=== PATIENT | female | born 1995 | race African-American/Black ===

== ENCOUNTER 2017-03-05 20:47 | Emergency (ER) | payer MEDICAID, OTHER ==
[~2017-03-05] VITALS: Ht 162.6 cm; Wt 54.5 kg
[2017-03-05 20:51] VITALS: Ht 162.6 cm; Wt 54.5 kg
[2017-03-05] MEDS ORDERED: morphine 4 MG/ML VIAL IV STA (22:00)
[2017-03-05] MEDS ORDERED: SOD CHLORIDE 0.9% 1,000 ML IV STA (22:00)
[2017-03-05] MEDS ORDERED: ONDANSETRON 4 MG INJ IV STA (22:00)
--- NOTE | 2017-03-05 22:13 | ERD ---
ER Documentation Chief Complaint Chief Complaint abd pain w/ N/V x 2 days HPI 22-year-old female presents to emergency department for complaints of left lower quadrant abdominal pain that started 2 days ago. Patient describes the pain as sharp pain, 8/10 scale, accompanied with vomiting. Patient does not have any blood in vomit. Patient does not have any blood in stool or black stool. Patient does not have any diarrhea or constipation. Patient had vaginal bleeding episode yesterday, also had hematuria yesterday. Patient describes the left lower quadrant pain as sharp pain, and also radiates to the left back. ROS All systems reviewed and are negative except as per history of present illness. Medications Home Meds Active Scripts Ondansetron (Ondansetron Odt) 4 Mg Tab.rapdis, 4 MG PO Q6H Y for NAUSEA AND/OR VOMITING, #20 TAB Prov:RAJI CHAVIS NP 03/06/17 Hydrocodone/Acetaminophen (Ladd 5-325 Tablet) 1 Each Tablet, 1 TAB PO Q6H Y for SEVERE PAIN LEVEL 7-10, #20 TAB Prov:RAJI CHAVIS NP 03/06/17 Phenazopyridine Hcl* (Pyridium*) 200 Mg Tab, 200 MG PO TID Y for URINARY PAIN, # 6 TAB Prov:RAJI CHAVIS NP 03/06/17 Ibuprofen* (Motrin*) 600 Mg Tab, 600 MG PO Q6H Y for PAIN AND OR ELEVATED TEMP, #30 TAB Prov:RAJI CHAVIS NP 03/06/17 Reported Medications [none] Unknown Strength No Conflict Check 03/05/17 Allergies Allergies: Coded Allergies: No Known Allergy (Unverified , 03/05/17) PMhx/Soc Medical and Surgical Hx: pt denies Medical Hx, pt denies Surgical Hx History of Surgery: No Anesthesia Reaction: No Hx Neurological Disorder: No Hx Respiratory Disorders: No Hx Cardiac Disorders: No Hx Psychiatric Problems: No Hx Miscellaneous Medical Probl: No Hx Alcohol Use: No Hx Substance Use: No Hx Tobacco Use: No Smoking Status: Never smoker FmHx Family History: No coronary disease, No diabetes, No other Physical Exam Vitals Vital Signs Date Time Temp Pulse Resp B/P Pulse Ox O2 Delivery O2 Flow Rate FiO2 03/05/17 20:51 98.6 102 20 140/82 100 Physical Exam GENERAL: The patient is well developed and appropriate for usual state of health, in no apparent distress. CHEST: Clear to auscultation bilaterally. There are no rales, wheezes or rhonchi. HEART: Regular rate and rhythm. No murmurs, clicks, rubs or gallops. No S3 or S4. ABDOMEN: Soft, nontender and nondistended. Good bowel sounds. No rebound or guarding. No gross peritonitis. No gross organomegaly or masses. No Childs sign or McBurney point tenderness. BACK: No midline or flank tenderness. EXTREMITIES: Equal pulses bilaterally. There is no peripheral clubbing, cyanosis or edema. No focal swelling or erythema. Full range of motion. Grossly neurovascularly intact. NEURO: Alert and oriented. Cranial nerves 2-12 intact. Motor strength in all 4 extremities with 5/5 strength. Sensation grossly intact. Normal speech and gait. SKIN: There is no apparent rash or petechia. The skin is warm and dry. HEMATOLOGIC AND LYMPHATIC: There is no evidence of excessive bruising or lymphedema. No gross cervical, axillary, or inguinal lymphadenopathy. Result Diagram: 03/05/17224503/05/172245 Results 24 hrs Laboratory Tests Test 03/05/17 22:46 03/05/17 22:52 White Blood Count 5.410^3/ul Red Blood Count 4.8210^6/ul Hemoglobin 14.5g/dl Hematocrit 43.7% Mean Corpuscular Volume 90.7fl Mean Corpuscular Hemoglobin 30.1pg Mean Corpuscular Hemoglobin Concent 33.2g/dl Red Cell Distribution Width 11.5% Platelet Count 38062^3/UL Mean Platelet Volume 9.3fl Neutrophils % 56.0% Lymphocytes % 29.7% Monocytes % 12.4% Eosinophils % 1.3% Basophils % 0.6% Nucleated Red Blood Cells % 0.0/100WBC Neutrophils # 3.010^3/ul Lymphocytes # 1.610^3/ul Monocytes # 0.710^3/ul Eosinophils # 0.110^3/ul Basophils # 0.010^3/ul Nucleated Red Blood Cells # 0.010^3/ul Sodium Level 140mmol/L Potassium Level 3.9mmol/L Chloride Level 100mmol/L Carbon Dioxide Level 27mmol/L Anion Gap 17 Blood Urea Nitrogen 15mg/dl Creatinine 0.99mg/dl Glucose Level 95mg/dl Calcium Level 10.1mg/dl Total Bilirubin 0.6mg/dl Direct Bilirubin 0.00mg/dl Indirect Bilirubin 0.6mg/dl Aspartate Amino Transf (AST/SGOT) 28IU/L Alanine Aminotransferase (ALT/SGPT) 26IU/L Alkaline Phosphatase 69IU/L Total Protein 9.4g/dl Albumin 4.6g/dl Globulin 4.80g/dl Albumin/Globulin Ratio 0.95 Lipase 50U/L Beta HCG, Quantitative < 2.4mIU/ml Urine Color YELLOW Urine Clarity CLEAR Urine pH 5.0 Urine Specific Whiting 1.043 Urine Ketones 2+mg/dL Urine Nitrite NEGATIVEmg/dL Urine Bilirubin 1+mg/dL Urine Urobilinogen 2+mg/dL Urine Leukocyte Esterase NEGATIVELeu/ul Urine Microscopic RBC 13/HPF Urine Microscopic WBC 2/HPF Urine Squamous Epithelial Cells FEW/HPF Urine Mucus MANY/HPF Urine Hemoglobin NEGATIVEmg/dL Urine Glucose NEGATIVEmg/dL Urine Total Protein 2+mg/dl Current Medications Medications (Trade) Dose Ordered Sig/Adali Route PRN Reason Start Time Stop Time Status Last Admin Dose Admin Sodium Chloride (NS) 1,000 ml @ 1,000 mls/hr Q1H STAT IV 03/05/17 22:00 03/05/17 22:59 DC 03/05/17 22:50 Morphine Sulfate (morphine) 4 mg ONCE STAT IV 03/05/17 22:00 03/05/17 22:01 DC 03/05/17 22:51 Ondansetron HCl (Zofran Inj) 4 mg ONCE STAT IV 03/05/17 22:00 03/05/17 22:02 VA 03/05/17 22:51 Metoclopramide HCl (Reglan) 10 mg ONCE ONCE IV 03/06/17 00:00 03/06/17 00:01 VA 03/05/17 23:52 Ketorolac Tromethamine (Toradol) 30 mg ONCE STAT IV 03/06/17 00:11 03/06/17 00:13 DC 03/06/17 00:18 Morphine Sulfate (morphine) 4 mg ONCE STAT IV 03/06/17 00:55 03/06/17 00:56 VA 03/06/17 01:26 Patient was given medication for pain here in emergency department, after treatment, patient verbalized feeling much better. Patient's pain is improved. Patient was given Zofran here in the emergency department. After treatment, patient was able to tolerate po fluids here in the emergency department without any vomiting. There is no signs and symptoms of dehydration. Normal saline IV bolus was given here in emergency department for rehydration, patient tolerated IV fluids. PROCEDURE: CT Abdomen and pelvis without contrast. CLINICAL INDICATION: Abdominal pain. TECHNIQUE: CT scan of the abdomen and pelvis was performed on a multi- detector high-resolution CT scanner. Contiguous axial images were obtained from the lung bases to the ischial tuberosities without intravenous contrast. Coronal and sagittal reformatted images were also obtained. Images were reviewed on the PACS workstation. DICOM images are available. One or more of the following dose reduction techniques were used: - Automated exposure control. - Adjustment of the mA and/or kV according to patient size. - Use of iterative reconstruction technique. Exam CTD/vol = 4.53 mGy. Total exam DLP = 237.35 mGy-cm. COMPARISON: None. FINDINGS: Evaluation of the lung bases demonstrates no pleural or parenchymal disease. Abdomen: The liver is normal in size. There is no focal mass or dilatation of the biliary tree. The gallbladder is not distended. The spleen, pancreas and bilateral adrenal glands are within normal limits. There is severe left-sided hydronephrosis with mild cortical thinning. The right kidney is normal in size with no contour deforming mass identified. There are punctate right renal calculi. There is no radiopaque ureteral calculus identified. There is no retroperitoneal adenopathy. The abdominal aorta is of normal caliber. There is no abnormal bowel wall thickening or distension. There is no bowel obstruction or free air. A normal appendix is partially visualized. There is no diverticulosis or diverticulitis. There is no ascites. Pelvis: The bladder is unremarkable. The uterus and adnexa are within normal limits. There is mild pelvic free fluid. There is no significant pelvic adenopathy. Evaluation of the osseous structures demonstrates no suspicious lytic or blastic lesion. IMPRESSION: Severe left-sided hydronephrosis likely secondary to ureteropelvic junction obstruction. Nonobstructing right renal calculi. Mild pelvic free fluid. .Rei Wakefield MD, MD Date Time Electronically viewed and signed by .Rei Wakefield MD, MD on 03/05/2017 23:50 .T/ CC: RAJI CHAVIS MANAGER LINE PROCEDURE: Pelvic ultrasound. CLINICAL INDICATION: Pelvic pain. TECHNIQUE: Multiple sonographic images of the pelvis were obtained utilizing a transabdominal and endovaginal technique. The images were reviewed on a PACS workstation. COMPARISON: None. FINDINGS: The uterus is visualized and measures 7.2 x 3.6 x 4.6 cm. No abnormal uterine mass is identified. The endometrial echo complex is homogeneous and measures 11.4 mm. There is mild free fluid within the cul-de-sac. The right ovary has a normal echotexture and measures 3.0 x 2.1 x 2.5 cm. The left ovary has a normal echotexture and measures 4.5 x 2.7 x 3.3 cm. There is normal flow to both ovaries. No adnexal masses are identified. IMPRESSION: Mild pelvic free fluid. Otherwise unremarkable pelvic ultrasound. .Rei Wakefield MD, MD Date Time Electronically viewed and signed by .Rei Wakefield MD, MD on 03/05/2017 22:58 .T/ CC: RAJI CHAVIS MANAGER LINE Procedures/[facility] Medical Decision Making: Symptoms was likely is consistent with renal colic, kidney function tests are normal at this time, most likely patient has passed the stone, as blood in the urine. I discussed this case with my attending physician, Dr. Velásquez, recommends outpatient follow-up with urology, to treat patient with pain medications. At this time, pain is controlled. There is low suspicion for abdominal emergencies at this time. Patients abdominal exam is normal at this time. Patients radiology exam does not show any abdominal emergencies at this time. There is low suspicion for appendicitis, cholecystitis , abdominal aortic aneurysms or peritonitis at this time. There is low suspicion for sepsis. Patient appears well and is hemodynamically stable. Disposition: Home. Condition: Stable Prescription Ladd, Zofran, ibuprofen, Pyridium Instructions: Patient is advised to take medications as prescribed. Patient is advised to rest, increase fluid intake and do brat diet for next 1-2 days and progress as tolerated. Patient is advised that if symptoms are worse, severe abdominal pain, uncontrolled vomiting, high fever, severe flank pain, worst signs and symptoms, to return to the emergency department immediately. Otherwise, patient can follow up with primary care doctor in 5-7 days. Disclaimer: Inadvertent spelling and grammatical errors are likely due to EHR/ dictation software use and do not reflect on the overall quality of patient care. Also, please note that the electronic time recorded on this note does not necessarily reflect the actual time of the patient encounter. Departure Diagnosis: Primary Impression: Renal colic on left side Condition: Stable Patient Instructions: Kidney Stone, Passed Additional Instructions: : Patient is advised to take medications as prescribed. Patient is advised to rest, increase fluid intake and do brat diet for next 1-2 days and progress as tolerated. Patient is advised that if symptoms are worse, severe abdominal pain , uncontrolled vomiting, high fever, severe flank pain, worst signs and symptoms , to return to the emergency department immediately. Otherwise, patient can follow up with primary care doctor in 5-7 days. RAJI CHAVIS NP Mar 05, 2017 22:13
--- NOTE | 2017-03-05 22:59 | RADRPT ---
PROCEDURE: Pelvic ultrasound. CLINICAL INDICATION: Pelvic pain. TECHNIQUE: Multiple sonographic images of the pelvis were obtained utilizing a transabdominal and endovaginal technique. The images were reviewed on a PACS workstation. COMPARISON: None. FINDINGS: The uterus is visualized and measures 7.2 x 3.6 x 4.6 cm. No abnormal uterine mass is identified. T he endometrial echo complex is homogeneous and measures 11.4 mm. There is mild free fluid within the cul-de-sac. The right ovary has a normal echotexture and measur es 3.0 x 2.1 x 2.5 cm. The left ovary has a normal echotexture and measures 4.5 x 2.7 x 3.3 cm. Th ere is normal flow to both ovaries. No adnexal masses are identified. IMPRESSION: Mild pelvic free fluid. Otherwise unremarkable pelvic ultrasound. .Rei Wakefield MD, MD Date Time Electronically viewed and signed by .Rei Wakefield MD, MD on 03/05/2017 22:58 .T/
[2017-03-05 23:14] LABS: BASOPHILS % 0.6 % (0.0-2.0); EOSINOPHILS # 0.1 10^3/ul (0.0-0.5); EOSINOPHILS % 1.3 % (0.0-7.0); HEMATOCRIT 43.7 % (37.0-47.0); HEMOGLOBIN 14.5 g/dl (12.0-16.0); LYMPHOCYTES # 1.6 10^3/ul (0.8-2.9); LYMPHOCYTES % 29.7 % (15.0-51.0); MEAN CORPUSCULAR HEMOGLOBIN 30.1 pg (29.0-33.0); MEAN CORPUSCULAR HGB CONC 33.2 g/dl (32.0-37.0); MEAN CORPUSCULAR VOLUME 90.7 fl (82.0-101.0); MEAN PLATELET VOLUME 9.3 fl (7.4-10.4); MONOCYTE # 0.7 10^3/ul (0.3-0.9); MONOCYTES % 12.4 % (0.0-11.0); PLATELET COUNT 311 10^3/UL (140-415); RED BLOOD COUNT 4.82 10^6/ul (4.20-5.40); RED CELL DISTRIBUTION WIDTH 11.5 % (11.5-14.5); WHITE BLOOD COUNT 5.4 10^3/ul (4.8-10.8)
[2017-03-05 23:22] LABS: ADD UMIC YES; UR ASCORBIC ACID 40 mg/dL (NEGATIVE); UR BILIRUBIN (Dip) 1+ mg/dL (NEGATIVE); UR BLOOD (Dip) NEGATIVE (NEGATIVE); UR CLARITY CLEAR (CLEAR); UR COLOR YELLOW (YELLOW); UR GLUCOSE (Dip) NEGATIVE (NEGATIVE); UR KETONES (Dip) 2+ mg/dL (NEGATIVE); UR LEUKOCYTE ESTERASE (Dip) NEGATIVE Leu/ul (NEGATIVE); UR MUCUS MANY /HPF (NONE SEEN); UR NITRITE (Dip) NEGATIVE (NEGATIVE); UR RBC 13 /HPF (0-5); UR SPECIFIC GRAVITY (Dip) 1.043 (1.003-1.030); UR SQUAMOUS EPITHELIAL CELL FEW /HPF (FEW); UR TOTAL PROTEIN (Dip) 2+ mg/dl (NEGATIVE); UR UROBILINOGEN (Dip) 2+ mg/dL (NEGATIVE)
[2017-03-05 23:24] LABS: ALBUMIN 4.6 g/dl (3.3-4.9); ALBUMIN/GLOBULIN RATIO 0.95; BILIRUBIN,INDIRECT 0.6 mg/dl (0-1.1); BILIRUBIN,TOTAL 0.6 mg/dl (0.2-1.3); CALCIUM 10.1 mg/dl (8.4-10.2); CREATININE 0.99 mg/dl (0.44-1.00); POTASSIUM 3.9 mmol/L (3.5-5.1); TOTAL PROTEIN 9.4 g/dl (6.1-8.1)
--- NOTE | 2017-03-05 23:51 | RADRPT ---
PROCEDURE: CT Abdomen and pelvis without contrast. CLINICAL INDICATION: Abdominal pain. TECHNIQUE: CT scan of the abdomen and pelvis was performed on a multi-detector high-resolution CT scanner. Contiguous axial images were obtained from the lung bases to the ischial tuberosities wit hout intravenous contrast. Coronal and sagittal reformatted images were also obtained. Images were reviewed on the PACS workstation. DICOM images are available. One or more of the following dose reduction techniques were used: - Automated exposure control. - Adjustment of the mA and/or kV according to patient size. - Use of iterative reconstruction technique. Exam CTD/vol = 4.53 mGy. Total exam DLP = 237.35 mGy-cm. COMPARISON: None. FINDINGS: Evaluation of the lung bases demonstrates no pleural or parenchymal disease. Abdomen: The liver is normal in size. There is no focal mass or dilatation of the biliary tree. T he gallbladder is not distended. The spleen, pancreas and bilateral adrenal glands are within william l limits. There is severe left-sided hydronephrosis with mild cortical thinning. The right kidney i s normal in size with no contour deforming mass identified. There are punctate right renal calculi. There is no radiopaque ureteral calculus identified. There is no retroperitoneal adenopathy. The abdominal aorta is of normal caliber. There is no abnormal bowel wall thickening or distension. There is no bowel obstruction or free air . A normal appendix is partially visualized. There is no diverticulosis or diverticulitis. There is no ascites. Pelvis: The bladder is unremarkable. The uterus and adnexa are within normal limits. There is mil d pelvic free fluid. There is no significant pelvic adenopathy. Evaluation of the osseous structures demonstrates no suspicious lytic or blastic lesion. IMPRESSION: Severe left-sided hydronephrosis likely secondary to ureteropelvic junction obstruction. Nonobstructing right renal calculi. Mild pelvic free fluid. .Rei Wakefield MD, MD Date Time Electronically viewed and signed by .Rei Wakefield MD, MD on 03/05/2017 23:50 .T/
[2017-03-06] MEDS ORDERED: METOCLOPRAMIDE 10 MG INJ IV ONE
[2017-03-06] MEDS ORDERED: KETOROLAC 30 MG INJ IV STA (00:11)
[2017-03-06] MEDS ORDERED: IBUP-1542 PO (00:23)
[2017-03-06] MEDS ORDERED: HYDR-906 PO (00:23)
[2017-03-06] MEDS ORDERED: ONDA4TAB14 PO (00:23)
[2017-03-06] MEDS ORDERED: PHEN-538 PO (00:23)
[2017-03-06] MEDS ORDERED: morphine 4 MG/ML VIAL IV STA (00:55)
[2017-03-07] MEDS ORDERED: POLY17PO6 PO (09:22)
[2017-03-07] MEDS ORDERED: DOCU-144 PO (09:22)
== END 2017-03-06 01:52 | disposition home or self-care (01) ==
LOC: FTE 20:47
DX: N23 Unspecified renal colic (principal); R11.10 Vomiting, unspecified
CPT/HCPCS: 36415; 74176; 76830; 76856; 80053; 81001; 83690; 84702; 85025; 96374; 96375; 96376; J1885; J2270; J2405; J2765; J7030; Z7502

== ENCOUNTER 2017-03-07 07:03 | Emergency (ER) | payer MEDICAID ==
[~2017-03-07] VITALS: Ht 157.5 cm; Wt 55.4 kg
[~2017-03-07 07:03] MED LIST: HYDR-906 PO; IBUP-1542 PO; ONDA4TAB14 PO; PHEN-538 PO
[2017-03-07 07:09] VITALS: Ht 157.5 cm; Wt 55.4 kg
[2017-03-07] MEDS ORDERED: ONDANSETRON 4 MG INJ IV STA (07:39)
[2017-03-07] MEDS ORDERED: SOD CHLORIDE 0.9% 1,000 ML IV STA (07:39)
[2017-03-07] MEDS ORDERED: KETOROLAC 30 MG INJ IV STA (07:39)
[2017-03-07] MEDS ORDERED: morphine 4 MG/ML VIAL IV STA (07:39)
[2017-03-07 08:12] LABS: BASOPHILS % 0.5 % (0.0-2.0); EOSINOPHILS # 0.1 10^3/ul (0.0-0.5); EOSINOPHILS % 1.9 % (0.0-7.0); HEMATOCRIT 37.3 % (37.0-47.0); HEMOGLOBIN 12.7 g/dl (12.0-16.0); LYMPHOCYTES # 1.3 10^3/ul (0.8-2.9); LYMPHOCYTES % 21.3 % (15.0-51.0); MEAN CORPUSCULAR HEMOGLOBIN 30.2 pg (29.0-33.0); MEAN CORPUSCULAR VOLUME 88.8 fl (82.0-101.0); MONOCYTE # 0.7 10^3/ul (0.3-0.9); MONOCYTES % 11.8 % (0.0-11.0); NEUTROPHIL # 3.8 10^3/ul (1.6-7.5); NEUTROPHILS % 64.3 % (39.0-77.0); PLATELET COUNT 258 10^3/UL (140-415); RED CELL DISTRIBUTION WIDTH 11.4 % (11.5-14.5); WHITE BLOOD COUNT 5.9 10^3/ul (4.8-10.8)
[2017-03-07 08:18] LABS: ADD UMIC YES; UR ASCORBIC ACID NEGATIVE (NEGATIVE); UR BILIRUBIN (Dip) NEGATIVE (NEGATIVE); UR BLOOD (Dip) 1+ mg/dL (NEGATIVE); UR CLARITY CLEAR (CLEAR); UR COLOR AMBER (YELLOW); UR GLUCOSE (Dip) NEGATIVE (NEGATIVE); UR KETONES (Dip) 1+ mg/dL (NEGATIVE); UR LEUKOCYTE ESTERASE (Dip) NEGATIVE Leu/ul (NEGATIVE); UR MUCUS FEW /HPF (NONE SEEN); UR NITRITE (Dip) POSITIVE (NEGATIVE); UR RBC 4 /HPF (0-5); UR SQUAMOUS EPITHELIAL CELL FEW /HPF (FEW); UR TOTAL PROTEIN (Dip) NEGATIVE (NEGATIVE); UR UROBILINOGEN (Dip) 2+ mg/dL (NEGATIVE)
[2017-03-07 08:35] LABS: ALBUMIN 4.3 g/dl (3.3-4.9); ALBUMIN/GLOBULIN RATIO 0.97; BILIRUBIN,INDIRECT 0.8 mg/dl (0-1.1); BILIRUBIN,TOTAL 0.8 mg/dl (0.2-1.3); CALCIUM 9.8 mg/dl (8.4-10.2); CREATININE 0.99 mg/dl (0.44-1.00); POTASSIUM 4.1 mmol/L (3.5-5.1); TOTAL PROTEIN 8.7 g/dl (6.1-8.1)
--- NOTE | 2017-03-07 08:37 | RADRPT ---
PROCEDURE: CT Abdomen and Pelvis without contrast. CLINICAL INDICATION: Left-sided pain. TECHNIQUE: CT scan of the abdomen and pelvis without contrast was performed on a multidetector hig h-resolution CT scanner. The patient was scanned without intravenous contrast. Coronal and sagittal reformatted images were obtained from the axial source images. Images were reviewed on a high-resol [employer] PACS workstation. The total exam CTDI equals 4.85 mGy and the total exam DLP equals 267.27 mGy -cm. One or the following dose reduction techniques were used: -Automated exposure control. -Adjustment of the mA and/or KV according to patient's size. -Use of iterative reconstruction technique. DICOM images are available. COMPARISON: CT abdomen pelvis 03/05/2017. FINDINGS: Note: Overall sensitivity of the study is lower by the fact that oral and intravenous contrast was not utilized. Lower thorax: Unremarkable. GI:. Unremarkable. Liver: Unremarkable. Gallbladder: Unremarkable. Pancreas: Unremarkable. Spleen: Unremarkablel Adrenals: Unremarkable. Kidneys: Small nonobstructing right renal calculi. Severe left-sided hydronephrosis is seen without ureterectasis. Bladder: Unremarkable. Pelvic Organs: Unremarkable. Skeleton: Normal for age. Other: Tiny amount of ascites in the pelvis similar to the prior study. IMPRESSION: 1. Severe left-sided hydronephrosis of low level of the ureteral pelvic junction. Further urologic e valuation is suggested. 2. Nonobstructing right renal calculi. 3. Tiny amount of pelvic ascites. 4. No mass, lymphadenopathy or evidence of an acute inflammatory process. RPTAT: [facility] Physician Nikki Date Time Electronically viewed and signed by Physician Nikki on 03/07/2017 08:36 /
--- NOTE | 2017-03-07 09:16 | ERD ---
ER Documentation Chief Complaint Chief Complaint Abdominal pain, Vomiting HPI The patient is a 22-year-old female with history of "severe hydronephrosis for 2 years" who presents to the emergency department with complaint of left-sided abdominal pain. The patient reports that her symptoms began 4-5 days ago. Her pain is localized to the left lower quadrant of the abdomen, and radiates to the back. She describes her pain as sharp in nature, rated 8 out of 10 in intensity, and associated with several episodes of nonbilious, nonbloody emesis. Patient notes that she was seen in the emergency department 2 days ago , and after evaluation was discharged home with prescriptions for El[place]orn and ibuprofen. She has been taking the medications as directed, but states no adequate relief. Additionally, she notes that since beginning to take the [place] , she has been constipated for the past 2 days. Therefore, she is requesting some medication for her constipation. She denies any fevers, sweats, chills, diarrhea, black or bloody stools, vaginal bleeding or new vaginal discharge. Denies chest pain, palpitations, shortness of breath. Denies any other complaints at this time. Patient states that as her symptoms have persisted, she doesn't "want to miss anything" and wants a "repeat of tests" for confirmation. Additionally, she is requesting pain relief. ROS All systems reviewed and are negative except as per history of present illness. Medications Home Meds Active Scripts Docusate Sodium* (Colace*) 100 Mg Capsule, 100 MG PO BID, #30 CAP Prov:LEONA LANDRY PA-C 03/07/17 Polyethylene Glycol* (Miralax*) 17 Gm Powd.pack, 17 GM PO DAILY, #7 Prov:LEONA LANDRY PA-C 03/07/17 Ondansetron (Ondansetron Odt) 4 Mg Tab.rapdis, 4 MG PO Q6H Y for NAUSEA AND/OR VOMITING, #20 TAB Prov:RAJI CHAVIS NP 03/06/17 Hydrocodone/Acetaminophen (Elkhorn 5-325 Tablet) 1 Each Tablet, 1 TAB PO Q6H Y for SEVERE PAIN LEVEL 7-10, #20 TAB Prov:RAJI CHAVIS NP 03/06/17 Phenazopyridine Hcl* (Pyridium*) 200 Mg Tab, 200 MG PO TID Y for URINARY PAIN, # 6 TAB Prov:RAJI CHAVISMaida CHEEMA 03/06/17 Ibuprofen* (Motrin*) 600 Mg Tab, 600 MG PO Q6H Y for PAIN AND OR ELEVATED TEMP, #30 TAB Prov:RAJI CHAVISMaida [employer] ADVISOR 03/06/17 Reported Medications [none] Unknown Strength No Conflict Check 03/05/17 Allergies Allergies: Coded Allergies: No Known Allergy (Unverified , 03/07/17) PMhx/Soc Medical and Surgical Hx: pt denies Surgical Hx History of Surgery: No Anesthesia Reaction: No Hx Neurological Disorder: No Hx Respiratory Disorders: No Hx Cardiac Disorders: No Hx Psychiatric Problems: No Hx Miscellaneous Medical Probl: Yes (hydronephrosis ) Hx Alcohol Use: No Hx Substance Use: No Hx Tobacco Use: No Smoking Status: Never smoker Physical Exam Vitals Vital Signs Date Time Temp Pulse Resp B/P Pulse Ox O2 Delivery O2 Flow Rate FiO2 03/07/17 07:09 98.1 99 18 138/77 99 Physical Exam GENERAL: Well-developed, well-nourished, in no acute distress. Non-toxic. Well- appearing. HEENT: Head is normocephalic, atraumatic. No scleral pallor or icterus. Extraocular movements intact. Conjunctiva pink. Moist mucous membranes. No pharyngeal erythema or exudates. Uvula is midline. NECK: Supple. Full range of motion. RESPIRATORY: Lungs are clear to auscultation bilaterally. Equal breath sounds. Normal expiratory effort. CARDIOVASCULAR: Regular rate and rhythm. S1 and S2 normal. GASTROINTESTINAL: Abdomen is soft and nondistended. Tenderness to palpation over the left lower quadrant of the abdomen. Voluntary guarding throughout. No rebound tenderness. Normal bowel sounds. No tenderness at McBurney's point. Negative Childs's sign. Negative Rovsing's sign. FLANK: No CVA tenderness, no mass or swelling. BACK: No midline tenderness. No paraspinal tenderness. GENITOURINARY: Normal external genitalia. (No abnormal discharge, no bleeding. No cervical motion tenderness. No adnexal tenderness. No uterine tenderness. No masses. 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 EXTREMITIES: No clubbing, cyanosis, or edema. Normal skin perfusion. Moving all extremities. Muscle tone is normal. No focal swelling or erythema. Distal pulses are palpable, 2+ bilaterally. Capillary refill is less than 2 seconds. NEUROLOGIC: The patient is alert, awake, and oriented x 3. INTEGUMENT: Skin is clean, dry and intact. No rashes, lesions or petechiae present. PSYCHIATRIC: Cooperative. Result Diagram: 03/07/17 0800 03/07/17 0800 Results 24 hrs Laboratory Tests Test 03/07/17 07:56 03/07/17 08:00 Urine Color KORY Urine Clarity CLEAR Urine pH 6.0 Urine Specific [place] 1.020 Urine Ketones 1+mg/dL Urine Nitrite POSITIVEmg/dL Urine Bilirubin NEGATIVEmg/dL Urine Urobilinogen 2+mg/dL Urine Leukocyte Esterase NEGATIVELeu/ul Urine Microscopic RBC 4/HPF Urine Microscopic WBC 1/HPF Urine Squamous Epithelial Cells FEW/HPF Urine Mucus FEW/HPF Urine Hemoglobin 1+mg/dL Urine Glucose NEGATIVEmg/dL Urine Total Protein NEGATIVEmg/dl White Blood Count 5.910^3/ul Red Blood Count 4.2010^6/ul Hemoglobin 12.7g/dl Hematocrit 37.3% Mean Corpuscular Volume 88.8fl Mean Corpuscular Hemoglobin 30.2pg Mean Corpuscular Hemoglobin Concent 34.0g/dl Red Cell Distribution Width 11.4% Platelet Count 73968^3/UL Mean Platelet Volume 9.0fl Neutrophils % 64.3% Lymphocytes % 21.3% Monocytes % 11.8% Eosinophils % 1.9% Basophils % 0.5% Nucleated Red Blood Cells % 0.0/100WBC Neutrophils # 3.810^3/ul Lymphocytes # 1.310^3/ul Monocytes # 0.710^3/ul Eosinophils # 0.110^3/ul Basophils # 0.010^3/ul Nucleated Red Blood Cells # 0.010^3/ul Sodium Level 141mmol/L Potassium Level 4.1mmol/L Chloride Level 104mmol/L Carbon Dioxide Level 25mmol/L Anion Gap 16 Blood Urea Nitrogen 13mg/dl Creatinine 0.99mg/dl Glucose Level 91mg/dl Calcium Level 9.8mg/dl Total Bilirubin 0.8mg/dl Direct Bilirubin 0.00mg/dl Indirect Bilirubin 0.8mg/dl Aspartate Amino Transf (AST/SGOT) 25IU/L Alanine Aminotransferase (ALT/SGPT) 24IU/L Alkaline Phosphatase 66IU/L Total Protein 8.7g/dl Albumin 4.3g/dl Globulin 4.40g/dl Albumin/Globulin Ratio 0.97 Lipase 85U/L Current Medications Medications (Trade) Dose Ordered Sig/Adali Route PRN Reason Start Time Stop Time Status Last Admin Dose Admin Sodium Chloride (NS) 1,000 ml @ 1,000 mls/hr Q1H STAT IV 03/07/17 07:39 03/07/17 08:38 DC 03/07/17 08:09 Morphine Sulfate (morphine) 4 mg ONCE STAT IV 03/07/17 07:39 03/07/17 07:40 DC 03/07/17 08:10 Ondansetron HCl (Zofran Inj) 4 mg ONCE STAT IV 03/07/17 07:39 03/07/17 07:40 DC 03/07/17 08:10 Ketorolac Tromethamine (Toradol) 30 mg ONCE STAT IV 03/07/17 07:39 03/07/17 07:40 DC 03/07/17 08:10 Acetaminophen (Tylenol Tab) 650 mg ONCE ONCE PO 03/07/17 10:00 03/07/17 10:00 DC 03/07/17 09:44 Procedures/MDM DIAGNOSTIC TESTS AND INTERPRETATION: PROCEDURE: CT Abdomen and Pelvis without contrast. CLINICAL INDICATION: Left-sided pain. TECHNIQUE: CT scan of the abdomen and pelvis without contrast was performed on a multidetector high-resolution CT scanner. The patient was scanned without intravenous contrast. Coronal and sagittal reformatted images were obtained from the axial source images. Images were reviewed on a high-resolution PACS workstation. The total exam CTDI equals 4.85 mGy and the total exam DLP equals 267.27 mGy-cm. One or the following dose reduction techniques were used: -Automated exposure control. -Adjustment of the mA and/or KV according to patient's size. -Use of iterative reconstruction technique. DICOM images are available. COMPARISON: CT abdomen pelvis 03/05/2017. FINDINGS: Note: Overall sensitivity of the study is lower by the fact that oral and intravenous contrast was not utilized. Lower thorax: Unremarkable. GI:. Unremarkable. Liver: Unremarkable. Gallbladder: Unremarkable. Pancreas: Unremarkable. Spleen: Unremarkablel Adrenals: Unremarkable. Kidneys: Small nonobstructing right renal calculi. Severe left-sided hydronephrosis is seen without ureterectasis Bladder: Unremarkable. Pelvic Organs: Unremarkable. Skeleton: Normal for age. Other: Tiny amount of ascites in the pelvis similar to the prior study. IMPRESSION: 1. Severe left-sided hydronephrosis of low level of the ureteral pelvic junction. Further urologic evaluation is suggested. 2. Nonobstructing right renal calculi. 3. Tiny amount of pelvic ascites. 4. No mass, lymphadenopathy or evidence of an acute inflammatory process. Physician Nikki Date Time Electronically viewed and signed by Physician Nikki on 03/07/2017 08: 36 EMERGENCY DEPARTMENT COURSE: The patient was stable throughout the ED course. IV access established by nursing staff. Laboratory testing ordered. Fluids, Morphine, Toradol, Zofran ordered. Additionally, patient's recent laboratory tests, CT and US imaging reviewed. Patient requesting repeat advanced imaging and laboratory tests. Repeat CT ordered. On reevaluation, the patient reports no new complaints. Despite administration of multiple medications, the patient continues to request narcotic pain medication. However, no significant acute abnormalities noted on laboratory analysis. Patient has no leukocytosis, no severe electrolyte abnormalities, no evidence of acute/surgical abdomen. Hydronephrosis seen on CT imaging, though patient has a 2-year history of this. No clinical findings to account for patient's symptoms. Pelvic examination without findings to suggest cervicitis, PID. Offered Tylenol to the patient, but do not believe additional narcotic therapy is warranted at this time, particularly because patient has already developed likely narcotic-associated constipation. Concern for possible drug-seeking behavior. The patient's results (todays and previous) were discussed at length with patient and shirring machine operator at bedside. Patient provided a copy of all results. Advised patient that information for urology follow up and shipyard painter follow up will be provided to her. Patient agreeable with plan. MEDICAL DECISION MAKING: This is a 22-year-old female presenting to the Emergency Department with complaint of abdominal pain, nausea and vomiting. On physical examination, the patient had tenderness to palpation over the left lower quadrant of the abdomen. The differential diagnosis includes, but is not limited to, ileus, nephrolithiasis, urinary tract infection, IBS, neoplastic disease, endometriosis, herpes zoster, AAA, pyelonephritis, ectopic , infectious colitis, ovarian cyst/torsion, PID, TOA, cervicitis, intra-abdominal abscess, volvulus, incarcerated hernia, GERD, PUD, viral illness, gastroenteritis, bowel obstruction, inflammatory bowel disease, peritonitis, appendicitis, gastritis, cholecystitis, pancreatitis, perforated viscus, mesenteric ischemia, diverticulitis. Laboratory analysis unremarkable. Patient with no leukocytosis, no severe electrolyte abnormalities, no anemia, no transaminitis, no evidence of prerenal azotemia or acute kidney injury. Urinalysis did reveal positive nitrites, but no leukocyte esterase, no significant WBCs. Doubt urinary tract infection. However, urine culture sent. CT abdomen and pelvis revealed severe left-sided hydronephrosis of low level of the ureteral pelvic junction. Otherwise, no evidence of mass, lymphadenopathy or acute inflammatory process noted. BUN and creatinine are normal, no RENUKA. Patient with no tenderness on pelvic examination, no discharge. Doubt cervicitis , PID, TOA. Recent US imaging 2 days ago with no evidence of torsion. I doubt cholecystitis, no RUQ tenderness, negative Childs's sign. Doubt pancreatitis - clinical presentation inconsistent. Doubt perforated ulcer, patient has a non -surgical abdomen. Doubt small bowel obstruction, patient is passing flatus, abdomen is non-distended. Doubt appendicitis, patient has no McBurney's point tenderness, no guarding, non-surgical abdomen, no tenderness over the RLQ. Doubt diverticulitis, no evidence on imaging, no fevers, no leukocytosis. Doubt ischemic bowel, no pain out of proportion to examination. Doubt torsion, symptoms and examination inconsistent, no evidence on recent US. No evidence of acute/surgical abdomen. At this time, the patient is in stable condition and therefore can be discharged home with a prescription for Colace and MiraLAX (as she notes 2-day history of constipation s/p taking [place]) and strict return precautions for signs of deteriorating or worsening condition. The patient is advised to follow up with their primary medical provider within 1-2 days for reevaluation and further management, or return to the ER sooner for any worsening symptoms. Patient also advised to follow up with urologist and shipyard painter. I shared my medical decision making and plan with the patient and she verbally understands and agrees with the plan for further observation and care as an outpatient. At the time of discharge, all questions were answered. Departure Diagnosis: Primary Impression: Left sided abdominal pain Additional Impressions: Hydronephrosis of left kidney Constipation Constipation type: unspecified constipation type Qualified Code: K59.00 - Constipation, unspecified constipation type Condition: Stable Patient Instructions: Abdominal Pain, Constipation (Adult), Hydronephrosis Adult Referrals: REN TRAN MD, RICHARD MD Additional Instructions: Call a primary care doctor TOMORROW for an appointment during the next 1-2 days for reevaluation and further management. You may need to follow up with a shipyard painter for further pain control, and urology specialist for evaluation of your pain/hydronephrosis. See the doctor sooner or return here if your condition worsens before your appointment time. LEONA LANDRY PA-C Mar 07, 2017 09:16 construction management assistant for further pain control, and urology specialist for evaluation of your pain/hydronephrosis. See the doctor sooner or return here if your condition worsens before your appointment time. LEONA LANDRY PA-C Mar 07, 2017 09:16
[2017-03-07] MEDS ORDERED: DOCU-144 PO (09:22)
[2017-03-07] MEDS ORDERED: POLY17PO6 PO (09:22)
[2017-03-07] MEDS ORDERED: ACETAMINOPHEN 325 MG TAB PO ONE (10:00)
== END 2017-03-07 09:53 | disposition home or self-care (01) ==
LOC: FTE 07:03
DX: N13.30 Unspecified hydronephrosis (principal); K59.00 Constipation, unspecified
CPT/HCPCS: 36415; 74176; 80053; 81001; 83690; 85025; 87086; 96374; 96375; J1885; J2270; J2405; J7030; Z7502; Z7610

== ENCOUNTER 2017-07-22 08:14 | Emergency (ER) | END 2017-07-22 11:25 | disposition home or self-care (01) ==